=== PATIENT | female | born 1960 | race Caucasian/White ===

== ENCOUNTER → 2023-11-07 16:09 | Outpatient (REF) | payer BC, SELFPAY | LOC: WDC 16:09 | PROVIDERS: ATTENDING PHYSICIAN Nurse Practitioner Adult Health; FAMILY PHYSICIAN Family Medicine | DX: Z12.31 Encounter for screening mammogram for malignant neoplasm of breast (principal); Z01.419 Encounter for gynecological examination (general) (routine) without abnormal findings | CPT/HCPCS: 77063; 77067 ==

== ENCOUNTER 2024-02-07 05:48 | Inpatient (IN) | payer BC, SELFPAY ==
--- NOTE | 2024-01-03 12:29 | CM ---
Patient is scheduled for an elective R TKR on 02/07/24. Spoke with patient prior to surgery via telephone. Patient had a L TKR at in 2022. reintroduced role of Orthopedic Navigator. Patient reports that that one of her daughters lives with her.
Her home is two stories with one step to enter. There is a flight of steps to the second floor. There is a powder room on the blasting entryman. She currently functions independently. 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 She has a rolling walker, cane, raised toilet seat
and shower seat. She has never had VN services. PCP is Beronica Valerio.
Discussed orthopedic program and post surgical plans. Reviewed anticipated length of stay and that goal is for her to return home at discharge. Also reviewed outpatient PT. Patient is in agreement with tentative plan and will go directly to
outpatient PT at [facility]. She will have support from her daughters when she goes home.
Patient has completed online education.
Plan: Orthopedic Navigator will remain available to assist with the care of patient and will reassess discharge needs after surgery.
[2024-01-15 07:11] VITALS: BMI 46.7
--- NOTE | 2024-01-15 08:20 | HPS.HSE ---
Family Physician
-
Family Physician: Beronica Valerio
Chief Complaint
-
Advanced primary osteoarthritis of the right knee.
History of Present Illness
The patient is a 63-year-old morbidly obese, female presenting today for advanced primary osteoarthritis of the right knee. The patient previously underwent an uncomplicated left total knee arthroplasty with Dr. Ranjit Tyson in February
2022. She returns to [facility] today with complaints of significant right knee pain associated with her osteoarthritis. She notes that her current right knee pain is greatly interfering with her activities of daily living and is overall
impacting her quality of life. She has tried and failed multiple conservative treatment measures in the past for her right knee pain. These conservative treatment measures include self therapeutic exercises, activity modification, corticosteroid
injections, medical management with Tylenol and NSAIDs, and the application of ice and/or heat. Recent x-ray findings of the right knee confirmed significant arthritic changes of the patellofemoral and medial joint compartments. She was determined
to be in need of a right total knee arthroplasty. She denies any current complaints today such as chest pain, shortness of breath, palpitations, nausea, vomiting, diarrhea, lightheadedness, dizziness, sore throat, or fever.
Medical History
Past Medical History
Past Medical History: Reports Other
Additional Past Medical History:
1. Osteoarthritis, status post left total knee arthroplasty, 02/2023, by Dr. Ranjit Tyson.
2. Right bundle branch block.
3. Obstructive sleep apnea, compliant with CPAP (setting 4).
4. Chronic dyspnea on exertion.
5. GERD.
6. Colon polyps.
7. Diverticulosis.
8. Colonic lipoma.
9. Hemorrhoids.
10. Irritable bowel syndrome with diarrhea.
11. Migraines.
12. Peripheral neuropathy.
13. Lumbar stenosis with chronic low back pain.
14. Overactive bladder with stress incontinence.
15. E. Coli UTI, 01/09/2024, treated with Macrobid.
16. Idiopathic urticaria, on previous Xolair.
17. Anxiety.
18. Depression.
19. Right perforated eardrum.
20. Morbid obesity, BMI 46.7
.
Past Surgical History: Reports Other
Additional Past Surgical History:
1. Left total knee arthroplasty, 02/2023, by Dr. Ranjit Tyson.
2. Left knee arthroscopy.
3. Tonsillectomy.
4. [place] teeth extraction.
5. Left cataract extraction and torn retina repair.
6. Ear polyp excision.
7. Colonoscopy x2.
Social History
Tobacco: Non-smoker
Alcohol: Other (She reports, on average, drinking one glass of wine monthly.)
Living: Other (The patient lives in a two story townhouse with her daughter.)
Family History
Family History: Not pertinent
Allergies / Home Medications
Allergy/Medication List:
Home medications:
1. Calcium Carbonate and Vitamin D3 1 tablet p.o. daily.
2. Cetirizine 10 mg p.o. daily as needed.
3. Cholecalciferol 125 mcg p.o. daily.
4. Ibuprofen 400 mg p.o. every 6 hours as needed.
5. Multivitamin 1 tablet p.o. daily.
6. Escitalopram 5 mg p.o. at bedtime.
7. Turmeric 1 capsule p.o. daily.
ALLERGIES: Pollen. No known drug allergies.
Review of Systems
-
A 12 point ROS was completed and negative except as noted: Yes
Physical Exam
Vital Signs
Blood pressure 117/79. Heart rate 70. Respirations 18. Pulse ox 95%.
Height 5 feet, 7 inches. Weight 135.2 kg. BMI 46.7.
Physical Exam
General: Well Developed, Well Nourished and No Apparent Distress
HEENT: NormoCephalic, Moist mucous membranes, Atraumatic and PERRLA
Respiratory: Clear
Cardiac: Regular Rhythm
GI: Soft, Non Tender, Non Distended and Other (Morbidly obese. )
Musculoskeletal: Other (Right knee reveals hypertrophic changes. Range of motion 2-105 degrees. Calf soft. Medial joint line tenderness with patellofemoral grind tenderness. Good strength. Ambulates without assistive device. )
Skin: Warm and Dry
Neuro: AO x 3 and Nonfocal/grossly intact
Laboratory Results
-
DIAGNOSTIC STUDIES as of 01/15/2024: White blood cell count 8.0. Hemoglobin 13.7. Platelet count 307,000. Sodium 138. Potassium 4.3. BUN 16. Creatinine 0.7. Glucose 74. Hemoglobin A1c 5.6. Calcium 10.0. AST 24. ALT 22. Albumin 4.4. MRSA screen
negative.
EKG 01/15/2024: Normal sinus rhythm. Left axis deviation. Right bundle branch block.
Impression/Plan
-
CLEARANCES:
1. Primary Medical, [facility] Leal - cleared.
Primary medical phone number: [phone].
2. Dental - waived.
IMPRESSION/PLAN:
1. Advanced primary osteoarthritis of the right knee in need of a right total knee arthroplasty by Dr. Ranjit Tyson on 02/07/2024. The benefits and risks of the procedure have been explained to the patient. The patient understands these risks and
wishes to proceed.
2. DVT prophylaxis: Aspirin with bilateral venous compression devices.
3. Irritable bowel syndrome with diarrhea: Colace will only be used initially for post-surgical bowel regimen.
4. Pain management: We will include Tylenol, Celebrex, Decadron, and Oxycodone as needed for moderate-severe post-operative pain. This pain medication regimen, reportedly, worked well after her prior left total knee arthroplasty.
Patient's phone number: [phone].
Patient's contact ([place] - Daughter): [phone].
[2024-01-15 08:47] LABS: Hematocrit 42.6 % (37.0-47.0); Hemoglobin 13.7 g/dL (12.0-16.0); Mean Corp Hgb Conc. 32.2 g/dL (33.0-37.0); Mean Corpuscular Hgb 27.3 pg (27.0-31.0); Mean Corpuscular Volume 84.9 fL (81.0-99.0); Mean Platelet Volume 10.4 fL (7.4-10.4); Platelet Count 307 10^3/uL (130-400); Red Blood Cell Count 5.02 10^6/uL (4.20-5.40); Red Cell Dist. Width 13.3 % (11.5-14.5)
[2024-01-15 09:21] LABS: ALT (SGPT) 22 U/L (0-35); AST (SGOT) 24 U/L (14-36); Albumin 4.4 g/dl (3.5-5.0); Alkaline Phosphatase 91 U/L (38-126); Blood Urea Nitrogen 16 mg/dl (7-17); Carbon Dioxide 28 mmol/L (22-30); Chloride 104 mmol/L (98-107); Estimated Creatinine Clearance 121 ml/min; Glucose 74 mg/dl (70-99); Potassium 4.3 mmol/L (3.5-5.1); Sodium 138 mmol/L (135-145); Total Bilirubin 0.4 mg/dl (0.2-1.3); Total Protein 7.1 g/dl (6.3-8.2); eGFR > 60.00
[2024-01-15 11:20] LABS: Glycohemoglobin (HgbA1c) 5.6 % (4.0-5.6)
[2024-01-15 14:01] VITALS: BMI 46.7
[2024-02-07] VITALS (14 sets, daily range): BP systolic 93–138; BP diastolic 50–85; PULSE 69
[2024-02-07] MEDS: TYLENOL 650 MG PO ×4 (06:00→19:49)
[2024-02-07] MEDS: CELEBREX 200 MG PO (06:00)
[2024-02-07] MEDS: NORMOSOL-R 1000 IV ×2 (06:21→10:29)
[2024-02-07] MEDS: DILAUDID 0.25 MG IV ×3 (09:29→10:42)
[2024-02-07] MEDS: ROXICODONE 5 MG PO ×3 (10:28→22:56)
--- NOTE | 2024-02-07 12:16 | W.PN.ORTHO ---
Addendum entered and electronically signed by Ranjit Tyson MD 02/07/24 16:17:
Patient seen and examined. Has been OOB. VSS. RLE: NVI distally. Calf soft. Able to fully extend. Postop xray as expected. ASA for DVT prophylaxis. Plan for discharge home tomorrow with outpatient PT.
Original Note:
Today's Communication / Plan
-
D/c when clinically stable.
Assessment
.
Distal Motor Intact: Yes
Dressing:
Clean, dry and intact.
Assessment:
R knee OA s/p R TKA w/ Dr Tyson 02/07/2024
- s/p L TKA, 02/2023, by Dr Tyson
DVT prophylaxis - ASA, b/l venous foot pumps
Obstructive sleep apnea, compliant with CPAP (setting 4), and chronic JACOBS - monitor O2
- IS
GERD - add Pepcid HS
Irritable bowel syndrome with diarrhea - Colace ONLY initially for post-surgical bowel regimen
Peripheral neuropathy - will add Gabapentin to accommodate for post-surgical neuropathic pain
RBBB
Colon polyps
Diverticulosis
Colonic lipoma
Hemorrhoids
Migraines
Lumbar stenosis with chronic low back pain
Overactive bladder with stress incontinence
E. Coli UTI, 01/09/2024, treated with Macrobid
Idiopathic urticaria, on previous Xolair
Anxiety
Depression
Right perforated eardrum
Morbid obesity, BMI 46.7
Plan
.
Surgery / Date: R TKA w/ Dr Tyson 02/07/2024
DVT Prophylaxis: Aspirin
Activity:
Out of bed.
PT/OT
Discharge Plan: Home w/ Outpatient PT
Subjective
.
.:
Patient examined resting in her chair.
Reports 4-5/10 right knee pain - pain meds adjusted.
Denies any new significant complaints.
Vital Signs and Labs
.
Vital Signs and Labs:
Lab Results
01/15/24 07:02
01/15/24 07:02
Temp Pulse Resp BP Pulse Ox
97.6 F 65 16 116/68 95
02/07/24 11:33 02/07/24 11:33 02/07/24 11:33 02/07/24 11:33 02/07/24 11:33
Physical Exam
-
HEENT: No pallor, cyanosis, or jaundice. Throat clear.
NECK: Supple. No JVD.
RESPIRATORY: Lungs clear to auscultation.
CVS: S1, S2 normal. RRR.�
ABDOMEN: Soft, non-tender. No distension. Morbidly obese.
EXTREMITIES: Strength equal, no calf pain with palpation/dorsiflexion. Calves soft.
TELEVISION OPERATOR: AOx3. No focal deficits. salesforce specialist grossly intact
[2024-02-07] MEDS: VITAMIN D3 (cholecalciferol) 125 MCG PO (13:06)
[2024-02-07] MEDS: LIDOCAINE 4% PATCH 2 PATCH TOPICAL (14:05)
[2024-02-07] MEDS: NEURONTIN 200 MG PO ×2 (14:06→19:49)
[2024-02-07] MEDS: TORADOL 30 MG IV (14:07)
[2024-02-07] MEDS: ANCEF 5 IV ×2 (15:00→22:56)
[2024-02-07] MEDS: ASPIRIN 325 MG PO (18:04)
[2024-02-07] MEDS: COLACE 100 MG PO (19:46)
[2024-02-07] MEDS: DECADRON 4 MG PO (19:47)
[2024-02-07] MEDS: BACTROBAN 2% OINTMENT 1 APPLIC NASAL (19:49)
[2024-02-07] MEDS: PEPCID 20 MG PO (22:51)
[2024-02-07] MEDS: LEXAPRO 5 MG PO (22:51)
[2024-02-08] MEDS: TYLENOL PO ×2 (00:02→05:10)
[2024-02-08] MEDS: ROXICODONE 5 MG PO ×2 (05:41→10:10)
[2024-02-08 07:15] VITALS: BP 126/65
--- NOTE | 2024-02-08 07:25 | W.PN.ORTHO ---
Today's Communication / Plan
-
Plan for discharge home today after PT
Assessment
.
Distal Motor Intact: Yes
Dressing:
Clean, dry and intact.
Assessment:
Stable s/p right TKR
Plan
.
Surgery / Date: R TKA w/ Dr Tyson 02/07/2024
DVT Prophylaxis: Aspirin
Activity:
Out of bed.
PT/OT
Discharge Plan: Home w/ Outpatient PT
Subjective
.
.:
Patient resting comfortably. OOB last night.
Vital Signs and Labs
.
Vital Signs and Labs:
Lab Results
01/15/24 07:02
01/15/24 07:02
Temp Pulse Resp BP Pulse Ox
98.0 F 65 20 109/59 93
02/07/24 23:46 02/07/24 23:46 02/07/24 23:46 02/07/24 23:46 02/07/24 23:46
Non-invasive Hgb result: 13.6
Physical Exam
-
Pulm: nonlabored
CV: regular
Abd: benign
Ext: NVI distally. Calf soft. Dressing CDI. Able to fully extend
[2024-02-08] MEDS: BACTROBAN 2% OINTMENT 1 APPLIC NASAL (07:52)
[2024-02-08] MEDS: CELEBREX 200 MG PO (07:52)
[2024-02-08] MEDS: COLACE 100 MG PO (07:52)
[2024-02-08] MEDS: ASPIRIN 325 MG PO (07:52)
[2024-02-08] MEDS: NEURONTIN 200 MG PO (07:53)
[2024-02-08] MEDS: LIDOCAINE 4% PATCH 2 PATCH TOPICAL (07:53)
[2024-02-08] MEDS: DECADRON 4 MG PO (07:53)
[2024-02-08] MEDS: TYLENOL 650 MG PO (07:53)
[2024-02-08] MEDS: VITAMIN D3 (cholecalciferol) 125 MCG PO (07:54)
--- NOTE | 2024-02-08 08:39 | W.PN.ORTHO ---
Today's Communication / Plan
-
Await PT and OT recs.
D/c later today if remaining clinically stable.
Assessment
.
Distal Motor Intact: Yes
Dressing:
Clean, dry and intact.
Assessment:
R knee OA s/p R TKA w/ Dr Tyson 02/07/2024
- s/p L TKA, 02/2023, by Dr Tyson
DVT prophylaxis - ASA, b/l venous foot pumps
Obstructive sleep apnea, compliant with CPAP (setting 4), and chronic JACOBS - O2 stable on RA
- IS
GERD - added Pepcid HS
Irritable bowel syndrome with diarrhea - Colace ONLY initially for post-surgical bowel regimen
- Will advise she add Senna if no bowel movement occurs within next 48 hours
Peripheral neuropathy - continue added Gabapentin to accommodate for post-surgical neuropathic pain
RBBB
Colon polyps
Diverticulosis
Colonic lipoma
Hemorrhoids
Migraines
Lumbar stenosis with chronic low back pain
Overactive bladder with stress incontinence
E. Coli UTI, 01/09/2024, treated with Macrobid
Idiopathic urticaria, on previous Xolair
Anxiety
Depression
Right perforated eardrum
Morbid obesity, BMI 46.7
Plan
.
Surgery / Date: R TKA w/ Dr Tyson 02/07/2024
DVT Prophylaxis: Aspirin
Activity:
Out of bed.
PT/OT
Discharge Plan: Home w/ Outpatient PT
Subjective
.
.:
Patient resting comfortably in her chair this AM.
Reports more stiffness in comparison to her previous TKA; however, is overall tolerating her discomfort well.
Denies any new significant complaints.
Eager for potential d/c today.
Vital Signs and Labs
.
Vital Signs and Labs:
Lab Results
01/15/24 07:02
01/15/24 07:02
Temp Pulse Resp BP Pulse Ox
97.8 F 67 16 126/65 94
02/08/24 07:15 02/08/24 07:15 02/08/24 07:15 02/08/24 07:15 02/08/24 07:15
Non-invasive Hgb result: 13.6
Physical Exam
-
HEENT: No pallor, cyanosis, or jaundice. Throat clear.
NECK: Supple. No JVD.
RESPIRATORY: Lungs clear to auscultation.
CVS: S1, S2 normal. RRR.�
ABDOMEN: Soft, non-tender. No distension. Morbidly obese.
EXTREMITIES: Expected post-surgical R knee edema. Strength equal, no calf pain with palpation/dorsiflexion. Calves soft.
OIL SEAL ASSEMBLER: AOx3. No focal deficits. grooming salon manager grossly intact
--- NOTE | 2024-02-08 08:57 | CM ---
Addendum entered by June Costello 02/08/24 09:53:
Patient did well in therapy. She and her daughter have no concerns about discharge.
Original Note:
Reviewed chart and held rounds with PT, OT and nursing. Patient admitted as planned for elective R TKR. Met with patient at bedside. Confirmed information previously obtained for assessment. Also discussed discharge plans. The plan is for patient to
return home at discharge. She will have support from her daughter when she goes home. Patient will go directly to outpatient PT and will go to [facility]. She has an appointment scheduled for Sunday, 02/10. Reviewed need to schedule appointment with EDILIA "Rey"at Dr. Tysno's office in two weeks for removal of jory.
Patient has a rolling walker, cane, raised toilet seat and shower seat.
She will use [facility] pharmacy for discharge prescriptions.
Discharge plans were reviewed with patient's daughters on 03/09.
[2024-02-08 09:08] VITALS: BP 113/58; PULSE 75
[2024-02-08 09:58] VITALS: BP 116/74; BP 131/76; PULSE 70; O2SAT 94
--- NOTE | 2024-02-08 09:59 | W.DS.TRANS ---
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
-
Discharge Instructions:
Discharge Diagnosis/Procedures R knee OA s/p R TKA w/ Dr Tyson 02/07/2024
Diet Regular
Activity As tolerated,With Walker
Driving Restrictions Not until seen by your Dr
Bathing Restrictions OK to Shower
Other Services PT
Wound Care Dressing to be removed 1 week post-surgery.
Carmen to be removed at 2 week follow-up with
surgeon's office.
Instructions:
Stand-Alone Forms: Total Hip/Knee Replacement D/C
Changes to Home Medications: Yes
Discharge Medications:
DC Medications w/original date entered in [facility]
cetirizine 10 mg tablet (Zyrtec) 10 mg PO DAILYPRN PRN Allergies 09/28/22
multivitamin 1 tab PO DAILY 09/28/22
turmeric 100 mg-salomón 150 mg-olive 50 mg-oreg 150 mg-capryl capsule 1 cap PO DAILY 02/06/23
calcium carbonate 500 mg-vitamin D3 10 mcg (400 unit) tablet (Calcium 500 + D) 1 tab PO DAILY 01/09/24
cholecalciferol (vitamin D3) 125 mcg (5,000 unit) tablet (Vitamin D3) 125 mcg PO DAILY 01/09/24
escitalopram oxalate 5 mg tablet 5 mg PO HS 01/15/24
mupirocin 2 % topical ointment 1 applic intranasal BID #1 tube 01/15/24
acetaminophen 500 mg tablet (Tylenol Extra Strength) 1,000 mg (2 x 500 mg) PO Q6H #60 tabs 02/08/24
aspirin 325 mg tablet 325 mg PO DAILY #30 tabs 02/08/24
celecoxib 200 mg capsule 200 mg PO DAILY #30 caps 02/08/24
dexamethasone 4 mg tablet 4 mg PO BID #5 tabs 02/08/24
docusate sodium 100 mg capsule 100 mg PO BID #30 caps 02/08/24
famotidine 20 mg tablet 20 mg PO HS #30 tabs 02/08/24
gabapentin 100 mg capsule 200 mg (2 x 100 mg) PO BID neuropathic pain #20 caps 02/08/24
lidocaine 4 % topical patch 2 patch topical DAILY #30 ea 02/08/24
oxycodone 5 mg tablet 5 - 10 mg (1 - 2 x 5 mg) PO Q4H PRN moderate-severe pain #30 tabs 02/08/24
prochlorperazine maleate 5 mg tablet 5 mg PO Q8H PRN nausea/vomiting #30 tabs 02/08/24
sennosides 8.6 mg tablet (Senna Laxative) 17.2 mg (2 x 8.6 mg) PO BIDPRN PRN constipation #30 tabs 02/08/24
Home Medication Changes
acetaminophen 500 mg tablet (Tylenol Extra Strength) 1,000 mg (2 x 500 mg) PO Q6H #60 tabs 02/08/24
aspirin 325 mg tablet 325 mg PO DAILY #30 tabs 02/08/24
celecoxib 200 mg capsule 200 mg PO DAILY #30 caps 02/08/24
dexamethasone 4 mg tablet 4 mg PO BID #5 tabs 02/08/24
docusate sodium 100 mg capsule 100 mg PO BID #30 caps 02/08/24
famotidine 20 mg tablet 20 mg PO HS #30 tabs 02/08/24
gabapentin 100 mg capsule 200 mg (2 x 100 mg) PO BID neuropathic pain #20 caps 02/08/24
lidocaine 4 % topical patch 2 patch topical DAILY #30 ea 02/08/24
oxycodone 5 mg tablet 5 - 10 mg (1 - 2 x 5 mg) PO Q4H PRN moderate-severe pain #30 tabs 02/08/24
prochlorperazine maleate 5 mg tablet 5 mg PO Q8H PRN nausea/vomiting #30 tabs 02/08/24
sennosides 8.6 mg tablet (Senna Laxative) 17.2 mg (2 x 8.6 mg) PO BIDPRN PRN constipation #30 tabs 02/08/24
Pending Results: No
== END 2024-02-08 11:06 | disposition home or self-care (01) | DRG 470 ==
LOC: 2 SOUTH 05:48
PROVIDERS: ADMITTING PHYSICIAN Orthopaedic Surgery; FAMILY PHYSICIAN Internal Medicine
PROC: 0SRC0J9 Replacement of Right Knee Joint with Synthetic Substitute, Cemented, Open Approach (ICD-10-PCS; 2024-02-07)
DX: M17.11 Unilateral primary osteoarthritis, right knee (principal); Z68.42 Body mass index [BMI] 45.0-49.9, adult; K21.9 Gastro-esophageal reflux disease without esophagitis; K58.0 Irritable bowel syndrome with diarrhea; E66.01 Morbid (severe) obesity due to excess calories; G47.33 Obstructive sleep apnea (adult) (pediatric); F32.A Depression, unspecified; F41.9 Anxiety disorder, unspecified; G62.9 Polyneuropathy, unspecified; G89.29 Other chronic pain; M48.061 Spinal stenosis, lumbar region without neurogenic claudication; N32.81 Overactive bladder; G43.909 Migraine, unspecified, not intractable, without status migrainosus; Z79.899 Other long term (current) drug therapy; Z96.652 Presence of left artificial knee joint
CPT/HCPCS: 36415; 73560; 80053; 83036; 85027; 87070; 93005; 97110; 97116; 97162; 97166; 97530; 97535; C1713; C1776

== ENCOUNTER → 2024-09-15 09:38 | Outpatient (REF) | payer BC, SELFPAY | LOC: RAD 09:38 | PROVIDERS: ATTENDING PHYSICIAN Obstetrics & Gynecology; FAMILY PHYSICIAN Internal Medicine | DX: R10.2 Pelvic and perineal pain (principal); N12 Tubulo-interstitial nephritis, not specified as acute or chronic | CPT/HCPCS: 76830; 76856 ==

== ENCOUNTER → 2024-11-10 15:05 | Outpatient (REF) | payer BC, SELFPAY | LOC: WDC 15:05 | PROVIDERS: ATTENDING PHYSICIAN Nurse Practitioner Adult Health | DX: Z12.31 Encounter for screening mammogram for malignant neoplasm of breast (principal) | CPT/HCPCS: 77063; 77067 ==